=== PATIENT | male | born 1955 | race Caucasian/White ===

== ENCOUNTER 2016-10-04 13:07 | Outpatient (CLI) | payer OTHER | END 2016-10-04 13:08 | disposition home or self-care (01) | DX: R97.20 Elevated prostate specific antigen [PSA] (principal) ==

== ENCOUNTER 2016-11-24 14:08 | Outpatient (CLI) | payer OTHER | END 2016-11-24 14:09 | disposition home or self-care (01) | DX: D64.9 Anemia, unspecified (principal) ==

== ENCOUNTER 2017-04-14 09:10 | Day surgery (SDC) | payer OTHER ==
[~2017-04-14 09:10] MED LIST: CYCLOPENTOLATE 1% OPHTH DROPS 2 ML ONE; KETOROLAC 0.45% OPHTH DROPS ONE; PHENYLEPHRINE 2.5% OPHTH 2 ML DROPS ONE; PROPARACAINE 0.5% OPHTH DROPS 15 ML ONE
[2017-04-14] MEDS ORDERED: CYCLOPENTOLATE 1% OPHTH DROPS 2 ML OPTH ONE (09:45)
[2017-04-14] MEDS ORDERED: KETOROLAC 0.45% OPHTH DROPS OPTH ONE (09:45)
[2017-04-14] MEDS ORDERED: PHENYLEPHRINE 2.5% OPHTH 2 ML DROPS OPTH ONE (09:45)
[2017-04-14] MEDS ORDERED: PROPARACAINE 0.5% OPHTH DROPS 15 ML OPTH ONE ×2 (09:45→11:23)
[2017-04-14] MEDS ORDERED: LACTATED RINGERS 500 ML IV ONE (09:51)
[2017-04-14] MEDS ORDERED: BRIMONIDINE 0.2% OPHTH DROPS 5 ML OPTH ONE (11:23)
[2017-04-14] MEDS ORDERED: CHONDR SULF/HYALURONATE SYRINGE IO ONE (11:23)
[2017-04-14] MEDS ORDERED: EPINEPHrine 1 MG/ML AMP IVP ONE (11:23)
[2017-04-14] MEDS ORDERED: TIMOLOL 0.5% OPHTH DROPS OPTH ONE (11:23)
[2017-04-14] MEDS ORDERED: TRIAMCIN/MOXIFLOX/VANCO 1 ML VIAL IO ONE ×2 (11:24)
[2017-04-14] MEDS ORDERED: BSS/LIDOCAINE/EPINEPHRINE 1 ML SYRINGE IO ONE ×2 (11:24)
[2017-04-14] MEDS ORDERED: MIDAZOLAM 2 MG/2 ML VIAL IVP ONE (11:30)
[2017-04-14 11:42] VITALS: BP 124/74
--- NOTE | 2017-04-14 17:14 | OPERATIVE REPORT ---
DATE OF SURGERY: 04/14/2017 00:00:00 PREOPERATIVE DIAGNOSIS: Visually significant cataract, right eye. Cataract surgery was performed on the left eye on 06/24/2013 with subsequent corneal failure requiring a DSEK and eventually an anterior chamber IOL in 11/2014. POSTOPERATIVE DIAGNOSIS: Visually significant cataract, right eye. Cataract surgery was performed on the left eye on 06/24/2013 with subsequent corneal failure requiring a desack and eventually an anterior chamber IOL in 11/2014. NAME OF PROCEDURE: Phacoemulsification with posterior chamber intraocular lens implant, right eye. SURGEON: Dr. Karl Rousseau ANESTHESIA: Monitored anesthesia care. COMPLICATIONS: None. OPERATIVE INDICATIONS: This is a 61-year-old man with progressive vision loss in the right eye due to 2-3+ nuclear sclerotic cataract. Best corrected visual acuity was 20/60 with glare to 20/200 in the right eye. INDICATIONS FOR SURGERY: Overall decrease in vision, difficulty seeing words on a computer screen, difficulty reading, difficulty seeing words and game scores on TV, difficulty driving in low light or at night, difficulty driving at night because of headlights from other vehicles, and difficulty with glare, bright lights in any situation. He was consented at length concerning risks and benefits of cataract surgery, after which he expressed desire to proceed with surgery. OPERATIVE PROCEDURE: The patient was taken to OR #2 and placed under monitored anesthesia care. A surgical time-out was conducted confirming correct patient, correct procedure and correct surgical site. He was given topical anesthesia and prepped and draped in the usual sterile fashion. The eye was entered at the 12 and 9 o'clock positions. Intracameral Shugarcaine was injected into the anterior chamber followed by Viscoat. A continuous tear curvilinear capsulorrhexis was performed. The nucleus was hydrodissected and phacoemulsified. The cortex was evacuated using automated infusion and aspiration. Provisc was injected into the capsular bag and a 19.0 diopter intraocular lens was inserted into the bag for a target of -6.5 diopters near- sightedness. Approximately a 0.7 mL mixture of triamcinolone, moxifloxacin and vancomycin was injected subconjunctivally in the superior quadrant for infection and inflammation prophylaxis. I and A was used to evacuate the viscoelastic materials. The eye was inflated under physiologic pressure using balanced salt solution and found to be water tight. The patient was taken from the operating room in good condition and given postoperative instructions. JOB #: [id number] EXT JOB #:[id number] SYDNEE
== END 2017-04-14 09:11 | disposition home or self-care (01) ==
LOC: SDS 09:10
PROVIDERS: ATTEND Ophthalmology
PROC: 08RJ3JZ Replacement of Right Lens with Synthetic Substitute, Percutaneous Approach (ICD-10-PCS; principal; 2017-04-14 10:30)
DX: H25.11 Age-related nuclear cataract, right eye (principal); I10 Essential (primary) hypertension; M10.9 Gout, unspecified; E78.00 Pure hypercholesterolemia, unspecified; Z87.891 Personal history of nicotine dependence
CPT/HCPCS: 66984; A9270; J3490; V2632

== ENCOUNTER 2017-08-02 08:00 | Outpatient (CLI) | payer OTHER | END 2017-08-02 08:01 | disposition home or self-care (01) | LOC: LAB.N 08:00 | PROVIDERS: ATTEND Urology | DX: R97.20 Elevated prostate specific antigen [PSA] (principal) | CPT/HCPCS: 36415; 84153 ==

== ENCOUNTER 2018-05-05 08:00 | Outpatient (CLI) | payer OTHER | END 2018-05-05 08:01 | LOC: LAB.N 08:00 | PROVIDERS: ATTEND Urology | DX: R97.20 Elevated prostate specific antigen [PSA] (principal) | CPT/HCPCS: 36415; 84153 ==

== ENCOUNTER 2019-04-30 08:00 | Outpatient (CLI) | payer OTHER | END 2019-04-30 23:59 | disposition home or self-care (01) | LOC: LAB.N 08:00 | PROVIDERS: ATTEND Urology | DX: Z12.5 Encounter for screening for malignant neoplasm of prostate (principal) | CPT/HCPCS: 36415; 84153 ==

== ENCOUNTER 2021-07-31 08:56 | Outpatient (CLI) | payer OTHER | END 2021-07-31 23:59 | disposition home or self-care (01) | LOC: LAB.WCP 08:56 | PROVIDERS: ATTEND Urology | DX: R97.20 Elevated prostate specific antigen [PSA] (principal) | CPT/HCPCS: 36415; 84153 ==

== ENCOUNTER 2022-10-26 09:40 | Outpatient (CLI) | payer MEDICARE, OTHER | END 2022-10-26 09:41 | disposition home or self-care (01) | LOC: LAB.N 09:40 | PROVIDERS: ATTEND Urology | DX: R97.20 Elevated prostate specific antigen [PSA] (principal) | CPT/HCPCS: 36415; 84153 ==

== ENCOUNTER 2023-01-19 08:00 | Outpatient (CLI) | payer MEDICARE, OTHER | END 2023-01-19 23:59 | disposition home or self-care (01) | LOC: LAB.N 08:00 | PROVIDERS: ATTEND Urology | DX: R97.20 Elevated prostate specific antigen [PSA] (principal) | CPT/HCPCS: 36415; 81599; 82565; 84520 ==

== ENCOUNTER 2023-02-16 13:53 | Outpatient (CLI) | payer MEDICARE, OTHER | END 2023-02-16 13:54 | disposition home or self-care (01) | LOC: LAB.N 13:53 | PROVIDERS: ATTEND Physician Assistant Medical | DX: R97.20 Elevated prostate specific antigen [PSA] (principal) | CPT/HCPCS: 36415; 84520 ==

== ENCOUNTER 2023-02-18 14:59 | Outpatient (CLI) | payer MEDICARE, OTHER ==
[2023-02-18 17:47] LABS: CREATININE 0.9 mg/dL (0.6-1.2)
== END 2023-02-18 15:00 | disposition home or self-care (01) ==
LOC: LAB.N 14:59
PROVIDERS: ATTEND Physician Assistant Medical
DX: R97.20 Elevated prostate specific antigen [PSA] (principal)
CPT/HCPCS: 36415; 82565

== ENCOUNTER 2023-03-02 09:08 | Outpatient (CLI) | payer MEDICARE, OTHER ==
[~2023-03-02 09:08] MED LIST changes: -CYCLOPENTOLATE 1% OPHTH DROPS 2 ML ONE; +GADOBUTROL 10 MMOL/10 ML VIAL ONE; -KETOROLAC 0.45% OPHTH DROPS ONE; -PHENYLEPHRINE 2.5% OPHTH 2 ML DROPS ONE; -PROPARACAINE 0.5% OPHTH DROPS 15 ML ONE
--- NOTE | 2023-03-02 10:49 | MRI Report ---
PROCEDURE: PELVIS W/WO INDICATIONS: ELEVATED PSA CONTRAST: gadavist 9.7ml TECHNIQUE: Coronal ultra fast SE, axial T1 FSE with fat saturation, 3-plane nonbreath-hold T2 FSE. After the ad ministration of contrast, dynamic axial, delayed axial and coronal ultra fast GE or 2-D spoiled GE wi th fat saturation through the pelvis. Optional diffusion weighted imaging and ADC may be performed. COMPARISON: None. FINDINGS: Image quality: Diffusion weighted and dynamic contrast enhanced images are diagnostic. Prostate: Gland size is 5.5 x 4.7 x 5.9 cm; ellipsoid gland volume is 79 mL. Transitional zone heterogenous nodules are present, either well encapsulated or mostly encapsulated, compatible with PI-RADS 1 or 2 likely BPH nodules. Mildly T2 hypointense heterogenous striated appear ance of the peripheral zone is commonly seen with current or prior prostatitis, PI-RADS 2. Small focus of T2 hypointensity in the left mid gland posterolateral peripheral zone measuring 6 x 9 x 7 mm (5/13, 6/20). DCE negative. DWI score 3. T2 score 3. PI-RADS 3. Seminal vesicles are clear. No extracapsular measurable extension. Genitourinary system: Bladder appears unremarkable. Bowel and peritoneum: Colonic diverticula are seen. No pathologic ascites. Nodes and vessels: No pathologic lymph nodes by size criteria or aneurysmal vessel. Soft tissues: Pelvic sam unremarkable. Possible tiny inguinal hernias Bones: Enhancement at the hip abductor attachments may represent tendinopathy. No suspicious osseous lesion identified. Lumbosacral degenerative changes. IMPRESSION: Small PI-RADS 3 lesion in the posterolateral left peripheral zone mid gland. Seminal vesicles are dyana ar. No definite extracapsular extension. Prostatomegaly and sequelae of prior prostatitis and BPH. Reviewed by: Kristofer Beltran MD on 03/02/2023 10:48 AM PDT Approved by: Kristofer Beltran MD on 03/02/2023 10:48 AM PDT Station ID: [id number]
[2023-03-02] MEDS ORDERED: GADOBUTROL 10 MMOL/10 ML VIAL IVP ONE (11:27)
== END 2023-03-02 09:09 | disposition home or self-care (01) ==
LOC: DI 09:08
PROVIDERS: ATTEND Urology
DX: N40.0 Benign prostatic hyperplasia without lower urinary tract symptoms (principal)
CPT/HCPCS: 72197; A9585

== ENCOUNTER 2023-05-05 07:49 | Outpatient (CLI) | payer MEDICARE, OTHER ==
[2023-05-05 13:02] LABS: BASOPHILS % (AUTO) 0.5 %; EOSINOPHILS # (AUTO) 0.2 10^3/uL (0.0-0.7); EOSINOPHILS % (AUTO) 2.2 %; HCT - HEMATOCRIT 42.9 % (42.0-52.0); HGB - HEMOGLOBIN 14.1 g/dL (14.0-18.0); LYMPHOCYTES # (AUTO) 2.6 10^3/uL (1.5-3.5); LYMPHOCYTES % (AUTO) 30.2 %; MEAN CORPUSCULAR HEMOGLOBIN 31.5 pg (27.0-31.0); MEAN CORPUSCULAR HGB CONC 32.9 g/dL (32.0-36.0); MEAN PLATELET VOLUME 9.9 fL (7.4-11.4); MONOCYTES # (AUTO) 0.7 10^3/uL (0.0-1.0); MONOCYTES % (AUTO) 8.4 %; NEUTROPHILS % (AUTO) 57.7 %; PLT - PLATELET COUNT 408 10^3/uL (130-450); RED BLOOD COUNT 4.47 10^6/uL (4.70-6.10); RED CELL DISTRIBUTION WIDTH 13.2 % (12.0-15.0); WHITE BLOOD COUNT 8.7 x10^3/uL (4.8-10.8)
[2023-05-05 13:33] LABS: ALBUMIN 4.4 g/dL (3.2-5.5); ALBUMIN/GLOBULIN RATIO 1.3 (1.0-2.2); ALKALINE PHOSPHATASE 123 IU/L (42-121); ALT ALANINE AMINOTRANSFERASE 26 IU/L (10-60); AST ASPARTATE AMINOTRANSFERASE 24 IU/L (10-42); BILIRUBIN,TOTAL 0.5 mg/dL (0.2-1.0); BUN - BLOOD UREA NITROGEN 13 mg/dL (6-20); CALCIUM 9.8 mg/dL (8.5-10.3); CARBON DIOXIDE - CO2 29 mmol/L (21-32); CHLORIDE 105 mmol/L (101-111); CHOL/HDL RATIO 4.5 (<5.0); CHOLESTEROL 118 mg/dL; GFR - MDRD 75 (>89); GLUCOSE 104 mg/dL (74-104); HDL CHOLESTEROL 26 mg/dL; LDL CHOLESTEROL,CALCULATED 38 mg/dL; LDL/HDL RATIO 1.5 (<3.6); POTASSIUM 4.1 mmol/L (3.5-4.5); SODIUM 140 mmol/L (135-145); TOTAL PROTEIN 7.7 g/dL (6.4-8.9); TRIGLYCERIDES 272 mg/dL (48-352); URIC ACID 5.6 mg/dL (4.4-7.6); VLDL CHOLESTEROL 54 mg/dL
== END 2023-05-05 07:50 | disposition home or self-care (01) ==
LOC: LAB.N 07:49
PROVIDERS: ATTEND Physician Assistant
DX: I10 Essential (primary) hypertension (principal); E78.5 Hyperlipidemia, unspecified; Z87.39 Personal history of other diseases of the musculoskeletal system and connective tissue
CPT/HCPCS: 36415; 80053; 80061; 83721; 84550; 85025

== ENCOUNTER 2023-11-02 10:10 | Outpatient (CLI) | payer MEDICARE, OTHER ==
[2023-11-02 13:22] LABS: PSA TOTAL 7.342 ng/mL (0.000-2.000)
== END 2023-11-02 10:11 | disposition home or self-care (01) ==
LOC: LAB.N 10:10
PROVIDERS: ATTEND Physician Assistant Medical
DX: R97.20 Elevated prostate specific antigen [PSA] (principal)
CPT/HCPCS: 36415; 84153; 84154

== ENCOUNTER 2024-05-04 07:11 | Outpatient (CLI) | payer MEDICARE, OTHER ==
[2024-05-04 12:10] LABS: BASOPHILS % (AUTO) 0.5 %; EOSINOPHILS # (AUTO) 0.2 10^3/uL (0.0-0.7); EOSINOPHILS % (AUTO) 2.9 %; HCT - HEMATOCRIT 44.1 % (42.0-52.0); LYMPHOCYTES # (AUTO) 2.2 10^3/uL (1.5-3.5); LYMPHOCYTES % (AUTO) 26.9 %; MEAN CORPUSCULAR HEMOGLOBIN 30.6 pg (27.0-31.0); MEAN CORPUSCULAR HGB CONC 31.7 g/dL (32.0-36.0); MEAN CORPUSCULAR VOLUME 96.5 fL (80.0-94.0); MEAN PLATELET VOLUME 10.1 fL (7.4-11.4); MONOCYTES # (AUTO) 0.8 10^3/uL (0.0-1.0); MONOCYTES % (AUTO) 9.8 %; NEUTROPHILS # (AUTO) 4.8 10^3/uL (1.5-6.6); NEUTROPHILS % (AUTO) 59.7 %; PLT - PLATELET COUNT 341 10^3/uL (130-450); RED BLOOD COUNT 4.57 10^6/uL (4.70-6.10); RED CELL DISTRIBUTION WIDTH 13.5 % (12.0-15.0)
[2024-05-04 12:28] LABS: ALBUMIN 4.2 g/dL (3.2-5.5); ALBUMIN/GLOBULIN RATIO 1.3 (1.0-2.2); ALKALINE PHOSPHATASE 115 IU/L (42-121); ALT ALANINE AMINOTRANSFERASE 28 IU/L (10-60); AST ASPARTATE AMINOTRANSFERASE 26 IU/L (10-42); BILIRUBIN,TOTAL 0.6 mg/dL (0.2-1.0); BUN - BLOOD UREA NITROGEN 13 mg/dL (6-20); CALCIUM 9.4 mg/dL (8.5-10.3); CARBON DIOXIDE - CO2 30 mmol/L (21-32); CHLORIDE 106 mmol/L (101-111); CHOL/HDL RATIO 4.3 (<5.0); CHOLESTEROL 115 mg/dL; CREATININE 0.9 mg/dL (0.6-1.3); GFR - MDRD 84 (>89); GLUCOSE 96 mg/dL (74-104); HDL CHOLESTEROL 27 mg/dL; LDL CHOLESTEROL,CALCULATED 48 mg/dL; LDL/HDL RATIO 1.8 (<3.6); POTASSIUM 4.1 mmol/L (3.5-4.5); SODIUM 140 mmol/L (135-145); TOTAL PROTEIN 7.5 g/dL (6.4-8.9); TRIGLYCERIDES 200 mg/dL; URIC ACID 4.7 mg/dL (4.4-7.6); VLDL CHOLESTEROL 40 mg/dL
== END 2024-05-04 07:12 | disposition home or self-care (01) ==
LOC: LAB.N 07:11
PROVIDERS: ATTEND Physician Assistant
DX: I10 Essential (primary) hypertension (principal); E78.5 Hyperlipidemia, unspecified; Z87.39 Personal history of other diseases of the musculoskeletal system and connective tissue
CPT/HCPCS: 36415; 80053; 80061; 83721; 84550; 85025

== ENCOUNTER 2024-05-16 09:42 | Outpatient (CLI) | payer MEDICARE, OTHER ==
--- NOTE | 2024-05-16 17:20 | CT Report ---
PROCEDURE: Lung Cancer Screen INDICATIONS: HIST OF TOBACCO USE TECHNIQUE: A CT scan of the chest was performed. Intravenous contrast media was not administered. Images were re corded and evaluated at appropriate window settings. Reformats: axial MIP of the chest, coronal and s agittal. For radiation dose reduction, the following was used: automated exposure control, adjustment of mA and/or kV according to patient size. COMPARISON: None. FINDINGS: Image quality: Diagnostic, allowing for low radiation dose Lungs and pleura:No dense consolidation or pleural effusion. No overtly suspicious pulmonary nodules. This is a baseline lung cancer screening CT. Mediastinum, heart, and esophagus: Mildly patulous distal esophagus. Coronary, valvular, and annular calcifications. No pathologic lymph nodes by size criteria. Numerous prominent mediastinal lymph node s are present, possibly reactive, attention on follow-up. Chest wall and thyroid: Possible 1.7 cm left thyroid nodule Upper abdomen: No gross abnormality on these low-dose noncontrast images Bones: Degenerative changes. IMPRESSION: Lung RADS 1: Continue annual screening. Coronary and valvular and annular cardiac calcifications. Left 1.7 cm thyroid nodule, consider nonurgent sonographic follow-up. Reviewed by: Kristofer Beltran MD on 05/16/2024 5:19 PM PDT Approved by: Kristofer Beltran MD on 05/16/2024 5:19 PM PDT Station ID: [id number]
== END 2024-05-16 09:43 | disposition home or self-care (01) ==
LOC: DI 09:42
PROVIDERS: ATTEND Physician Assistant
DX: Z12.2 Encounter for screening for malignant neoplasm of respiratory organs (principal); I25.10 Atherosclerotic heart disease of native coronary artery without angina pectoris; E04.1 Nontoxic single thyroid nodule; Z87.891 Personal history of nicotine dependence

== ENCOUNTER 2024-05-31 10:30 | Outpatient (CLI) | payer MEDICARE, OTHER | END 2024-05-31 10:31 | disposition home or self-care (01) | LOC: DI 10:30 | PROVIDERS: ATTEND Physician Assistant | DX: I35.0 Nonrheumatic aortic (valve) stenosis (principal) | CPT/HCPCS: 93307 ==